=== PATIENT | male | born 1970 | race Caucasian/White ===

== ENCOUNTER 2017-11-08 20:33 | Emergency (ER) | payer SELFPAY ==
--- NOTE | 2017-11-08 22:07 | RADIOLOGY REPORT (SQ) ---
EXAM DESCRIPTION: T SPINE AP/LAT COMPLETED DATE/TIME: 11/08/2017 9:53 pm REASON FOR STUDY: BACK PAIN, LIFTING 400 POUNDS COMPARISON: None. NUMBER OF VIEWS: Two views. TECHNIQUE: AP and lateral radiographic images acquired of the thoracic spine. LIMITATIONS: None. FINDINGS: MINERALIZATION: Normal. ALIGNMENT: Normal. No scoliosis. VERTEBRAE: No fracture or bone lesion. Maintained height, normal segmentation. DISCS: No significant loss of height or significant narrowing. No large osteophytes. HARDWARE: None in the spine. MEDIASTINUM AND SOFT TISSUES: Normal heart size and aortic contour. No soft tissue abnormality. VISUALIZED LUNG [place]: Clear. OTHER: No other significant finding. IMPRESSION: NO SIGNIFICANT RADIOGRAPHIC FINDING IN THE THORACIC SPINE. TECHNICAL DOCUMENTATION: JOB ID: [id number] [employer]- All Rights Reserved Reading location - IP/workstation name: [email or web address]
--- NOTE | 2017-11-08 22:08 | RADIOLOGY REPORT (SQ) ---
EXAM DESCRIPTION: L SPINE WHOLE COMPLETED DATE/TIME: 11/08/2017 9:53 pm REASON FOR STUDY: BACK PAIN, LIFTING 400 POUNDS COMPARISON: None. NUMBER OF VIEWS: Five views including obliques. TECHNIQUE: AP, lateral, oblique, and sacral radiographic images acquired of the lumbar spine. LIMITATIONS: None. FINDINGS: MINERALIZATION: Normal. SEGMENTATION: Normal. No transitional anatomy. ALIGNMENT: Normal. VERTEBRAE: Maintained height. No fracture or worrisome bone lesion. DISCS: 5 degenerative disc disease with disc space narrowing L4-5 and L5-S1. POSTERIOR ELEMENTS: Pedicles and facets are intact. No pars defect or posterior arch defects. HARDWARE: None in the spine. PARASPINAL SOFT TISSUES: Normal. PELVIS: Intact as visualized. No fractures or worrisome bone lesions. SI joints intact. OTHER: No other significant finding. IMPRESSION: Lower lumbar degenerative disc disease. No acute fracture. TECHNICAL DOCUMENTATION: JOB ID: [id number] [employer]- All Rights Reserved Reading location - IP/workstation name: [email or web address]
[2017-11-08] MEDS ORDERED: DIAZEPAM 5 MG TABLET PO ONE (23:22)
[2017-11-08] MEDS ORDERED: IBUPROFEN 600 MG TABLET PO ONE (23:22)
--- NOTE | 2017-11-08 23:28 | ER Document Report ---
ED Neck/Back Problem - General Chief Complaint: Back Pain Stated Complaint: BACK PAIN Time Seen by Provider: 11/08/17 21:13 Mode of Arrival: Ambulatory Information source: Patient TRAVEL OUTSIDE OF THE [place] IN LAST 30 DAYS: No - HPI Patient complains to provider of: Pain, Upper back Onset: Other - 3 DAYS AGO Where: Work Notes: Patient is here with complaints of upper and lower back pain. States that a few days ago he was lifting a 400 pound box while at work and felt a sudden pain in his back. Since that time he has had increasing pain. There is no traumatic injury or fall. He is on no blood thinners. He denies any abdominal pain. He denies any chest pain or shortness of breath. No nausea, vomiting, diarrhea. No dysuria hematuria. He denies any numbness, tingling, weakness to the legs or arms. No bowel or bladder dysfunction. No rash. Pain is worse with movement, coughing, deep breath, nothing seems to make it better. No other injuries or complaints at this time. - Related Data Allergies/Adverse Reactions: Penicillins Allergy (Verified 11/08/17 20:36) Past Medical History - Social History Smoking Status: Current Every Day Smoker Chew tobacco use (# tins/day): No Frequency of alcohol use: Occasional Drug Abuse: None Family History: Reviewed & Not Pertinent Patient has suicidal ideation: No Patient has homicidal ideation: No Renal/ Medical History: Denies: Hx Peritoneal Dialysis Musculoskeltal Medical History: Reports Hx Arthritis Review of Systems - Review of Systems -: Yes All other systems reviewed and negative Physical Exam - Vital signs Vitals: Temp Pulse Resp BP Pulse Ox 98.9 F 109 H 28 H 135/83 H 96 11/08/17 20:51 11/08/17 20:51 11/08/17 20:51 11/08/17 20:51 11/08/17 20:51 - Notes Notes: GENERAL: alert, cooperative, nontoxic, no distress. HEAD: normocephalic, atraumatic EYES: conjunctiva pink without discharge, no external redness or swelling. EARS: no external swelling, no external redness NOSE: atraumatic, no external swelling MOUTH/THROAT: mucous membranes moist and pink, posterior pharynx without erythema, swelling, exudate. No trismus or drooling. NECK: soft, supple, full range of motion, no meningismus. CHEST: no distress, lungs clear and equal throughout. No wheezing, rales, rhonchi. CARDIAC: regular rate and rhythm, no murmur, normal capillary refill, normal pulses. No peripheral edema noted. ABDOMEN: soft, nontender, no pusatile mass. BACK: No CVA tenderness. Tenderness to the thoracic paraspinal muscles with muscle spasm to the right thoracic paraspinal muscle. No significant midline tenderness step-offs or crepitus. EXTREMITIES: full range of motion of all extremities. No redness, no swelling. NEURO: alert and oriented A&O x 3, no focal deficits, full range of motion of all extremities. 5 out of 5 flexion and extension of the lower extremities bilaterally. Patellar and Achilles deep tendon reflexes are +2 bilaterally. Normal sensation with no saddle anesthesia. Patient can dorsiflex the great toes bilaterally. PYSCH: appropriate mood, affect. Patient is cooperative. SKIN: pink, warm, dry, no rash. Course - Re-evaluation Re-evalutation: 11/08/17 23:24 Patient is nontoxic appearing with stable vitals. Is here with complaints of upper and lower back pain after lifting a 400 pound box at work. No direct trauma. He is on no blood thinners. No sign or risk of cauda equina, epidural abscess/bleed, discitis, osteomyelitis, AAA, pyelonephritis. Exam shows tenderness along the thoracic paraspinal muscles with muscle spasm on the right. No significant midline tenderness on exam. X-rays of the thoracic and lumbar spine show no acute abnormality with degenerative disc disease in the lumbar spine. The patient will be given a dose of ibuprofen and Valium here in the emergency department will be discharged home with Naprosyn and Valium. He is instructed to apply heat to the sore area. Massage the area. Follow-up if not better in 1 week, sooner for worsening pain, fever, numbness, tingling, weakness, bowel or bladder dysfunction, or for any further concerns. The patient is noted to have elevated blood pressure during today's emergency department visit. The patient was informed of this finding. The patient was instructed that this may be related to pre-hypertension and requires further evaluation with a primary care provider. The patient has no hypertensive symptoms at this time. The patient's emergency department workup and current diagnosis were explained to the patient and or family. Follow-up instructions were provided. Medications if prescribed were discussed. Instructions for when to return to the emergency department including specific worrisome symptoms were discussed with the patient and/or family. - Vital Signs Vital signs: Temp Pulse Resp BP Pulse Ox 98.9 F 109 H 28 H 135/83 H 96 11/08/17 20:51 11/08/17 20:51 11/08/17 20:51 11/08/17 20:51 11/08/17 20:51 - Diagnostic Test Radiology reviewed: Image reviewed, Reports reviewed - Thoracic and lumbar spine x-rays without acute findings. Degenerative disc disease in the lumbar spine. Discharge - Discharge Clinical Impression: Spasm of thoracic back muscle Back strain Qualifiers: Encounter type: initial encounter Qualified Code(s): S39.012A - Strain of muscle, fascia and tendon of lower back, initial encounter Condition: Stable Disposition: HOME, SELF-CARE Instructions: Low Back Pain ([facility]), Muscle Strain ([facility]), Warm Packs ([facility]), Muscle Relaxers ([facility]) Additional Instructions: Take medications as prescribed. You may also take Tylenol as needed for pain. Apply heat to sore area. Massage the area. Follow-up if not better in 1 week, sooner for worsening pain, fever, numbness, tingling, weakness, bowel or bladder dysfunction, or for any further concerns. Your blood pressure was elevated during today's visit. Have this rechecked with your doctor. Prescriptions: Diazepam [Valium 5 mg Tablet] 5 mg PO QIDP PRN #15 tablet PRN Reason: Naproxen [Naprosyn] 500 mg PO BID #20 tablet Forms: Elevated Blood Pressure, Smoking Cessation Education Referrals: [facility] [Provider Group] - Follow up as needed
[2017-11-08 23:48] VITALS: BP 121/85
== END 2017-11-08 23:48 | disposition home or self-care (01) ==
LOC: ER 20:33
DX: S39.012A Strain of muscle, fascia and tendon of lower back, initial encounter (principal); M62.830 Muscle spasm of back; F17.200 Nicotine dependence, unspecified, uncomplicated; Z88.0 Allergy status to penicillin; X50.0XXA Overexertion from strenuous movement or load, initial encounter; Y99.0 Civilian activity done for income or pay
CPT/HCPCS: 72070; 72110; 99283

== ENCOUNTER 2018-07-26 15:08 | Emergency (ER) | payer SELFPAY ==
[2018-07-26] MEDS ORDERED: CLINDAMYCIN 900 MG/D5W RTU 900 MG/50 ML RTUPB IV ONE (15:40)
[2018-07-26] MEDS ORDERED: KETOROLAC TROMETHAMINE INJ/PF 30 MG/1 ML SDV IV ONE (15:40)
--- NOTE | 2018-07-26 15:41 | ER Document Report ---
ED Medical Screen (RME) - General Chief Complaint: Hand Injury Stated Complaint: RIGHT HAND INJURY Time Seen by Provider: 07/26/18 15:18 Notes: 48-year-old male to the emergency department chief complaint of right hand pain, swelling, redness and drainage from the hand. Patient states that he got his hands slammed in a tailgate of a dump truck 4 days ago. Has continued to swell. There was somewhat swelling that his friend decided to cut it open. Reportedly large amount of pus came out. Redness is not extending up the wrist and forearm. States that his last tetanus was 3 years ago. No fever. Pain is rated as a 5/5 on a numeric pain scale. I have greeted and performed a rapid initial assessment of this patient. A comprehensive ED assessment and evaluation of the patient, analysis of test results and completion of the medical decision making process will be conducted by additional ED providers. TRAVEL OUTSIDE OF THE [place] IN LAST 30 DAYS: No - Related Data Allergies/Adverse Reactions: Penicillins Allergy (Verified 11/08/17 20:36) Past Medical History - Social History Chew tobacco use (# tins/day): No Frequency of alcohol use: Social Drug Abuse: None Renal/ Medical History: Denies: Hx Peritoneal Dialysis Musculoskeltal Medical History: Reports Hx Arthritis Physical Exam - Vital signs Vitals: Temp Pulse Resp BP Pulse Ox 99.1 F 109 H 24 H 132/83 H 97 07/26/18 15:14 07/26/18 15:14 07/26/18 15:14 07/26/18 15:14 07/26/18 15:14 - Extremities General upper extremity: Other - Swelling and edema noted to the right dorsum of the hand. Abrasions noted to the dorsum of the right hand. Lymphangitic streaking going up the wrist and arm. Course - Vital Signs Vital signs: Temp Pulse Resp BP Pulse Ox 99.1 F 109 H 24 H 132/83 H 97 07/26/18 15:14 07/26/18 15:14 07/26/18 15:14 07/26/18 15:14 07/26/18 15:14
--- NOTE | 2018-07-26 15:49 | RADIOLOGY REPORT (SQ) ---
EXAM DESCRIPTION: HAND RIGHT 3 VIEWS COMPLETED DATE/TIME: 07/26/2018 3:39 pm REASON FOR STUDY: Smashed hand in tailgate of [facility] 2 days ago COMPARISON: None. EXAM PARAMETERS: NUMBER OF VIEWS: Three views. TECHNIQUE: AP, lateral and oblique radiographic images acquired of the right hand. LIMITATIONS: None. FINDINGS: MINERALIZATION: Normal. BONES: No acute fracture or dislocation. No worrisome bone lesions. JOINTS: No effusions. SOFT TISSUES: Dorsal soft tissue swelling. No foreign body. OTHER: No other significant finding. IMPRESSION: Soft tissue injury. TECHNICAL DOCUMENTATION: JOB ID: [id number] [employer]- All Rights Reserved Reading location - IP/workstation name: [email or web address]
[2018-07-26 15:59] LABS: ABSOLUTE BASOPHILS # (AUTO) 0.1 10^3/uL (0.0-0.2); ABSOLUTE LYMPHOCYTES (AUTO) 1.1 10^3/uL (0.5-4.7); ABSOLUTE MONOCYTES (AUTO) 1.1 10^3/uL (0.1-1.4); ABSOLUTE NEUT (AUTO) 8.9 10^3/uL (1.7-8.2); BASOPHILS % (AUTO) 0.5 % (0-2); EOSINOPHILS % (AUTO) 0.2 % (0-6); HEMATOCRIT 45.5 % (37.9-51.0); HEMOGLOBIN 15.5 g/dL (13.5-17.0); LYMPHOCYTES % (AUTO) 9.5 % (13-45); MEAN CORPUSCULAR HEMOGLOBIN 35.7 pg (27.0-33.4); MEAN CORPUSCULAR HGB CONC 34.1 g/dL (32.0-36.0); MEAN CORPUSCULAR VOLUME 105 fl (80-97); MONOCYTES % (AUTO) 9.7 % (3-13); PLATELET COUNT 214 10^3/uL (150-450); RED BLOOD COUNT 4.35 10^6/uL (4.35-5.55); RED CELL DISTRIBUTION WIDTH 13.6 % (11.5-14.0); SEGMENTED NEUTROPHILS % (AUTO) 80.1 % (42-78); TOTAL CELLS COUNTED % (AUTO) 100 %; WHITE BLOOD COUNT 11.1 10^3/uL (4.0-10.5)
[2018-07-26 16:27] LABS: ALANINE AMINOTRANSFERASE 96 U/L (21-72); ALBUMIN 4.6 g/dL (3.5-5.0); ALKALINE PHOSPHATASE 151 U/L (38-126); ANION GAP 13 (5-19); ASPARTATE AMINO TRANSFERASE 61 U/L (17-59); BILIRUBIN,DIRECT 0.4 mg/dL (0.0-0.4); BILIRUBIN,TOTAL 0.7 mg/dL (0.2-1.3); C-REACTIVE PROTEIN 17.8 mg/L (<10.0); CALCIUM 9.2 mg/dL (8.4-10.2); CARBON DIOXIDE 24 mmol/L (22-30); CHLORIDE 102 mmol/L (98-107); GLUCOSE 163 mg/dL (75-110); POTASSIUM 3.9 mmol/L (3.6-5.0); SODIUM 139.4 mmol/L (137-145); TOTAL PROTEIN 7.7 g/dL (6.3-8.2)
[2018-07-26 16:28] LABS: BLOOD UREA NITROGEN < 2 mg/dL (7-20)
--- NOTE | 2018-07-26 17:29 | ER Document Report ---
ED General - General Chief Complaint: Hand Injury Stated Complaint: RIGHT HAND INJURY Time Seen by Provider: 07/26/18 15:18 Notes: 48-year-old [id number] male to the emergency department with chief complaint of right hand pain, swelling, redness and drainage from his right hand. Patient states that he got his hands slammed in a tailgate of a dump truck 4 days ago. Has continued to swell. There was an area of swelling on the dorsal aspect of his right hand that he thought was infected so his friend decided to slice it open with a "clean "razor blade. Reportedly a large amount of pus came out. States that his last tetanus was 3 years ago. No fever. Pain is rated as a 5/5 on a numeric pain scale. Patient denies any other symptoms TRAVEL OUTSIDE OF THE [place] IN LAST 30 DAYS: No - Related Data Allergies/Adverse Reactions: Penicillins Allergy (Verified 11/08/17 20:36) Past Medical History - General Information source: Patient - Social History Smoking Status: Current Every Day Smoker Chew tobacco use (# tins/day): No Frequency of alcohol use: Social Drug Abuse: None Family History: Reviewed & Not Pertinent Patient has suicidal ideation: No Patient has homicidal ideation: No Renal/ Medical History: Denies: Hx Peritoneal Dialysis Musculoskeletal Medical History: Reports Hx Arthritis Review of Systems - Review of Systems Constitutional: See HPI EENT: No symptoms reported Cardiovascular: No symptoms reported Respiratory: No symptoms reported Gastrointestinal: No symptoms reported Genitourinary: No symptoms reported Male Genitourinary: No symptoms reported Musculoskeletal: See HPI Skin: See HPI Hematologic/Lymphatic: No symptoms reported Neurological/Psychological: No symptoms reported Physical Exam - Vital signs Vitals: Temp Pulse Resp BP Pulse Ox 99.1 F 109 H 24 H 132/83 H 97 07/26/18 15:14 07/26/18 15:14 07/26/18 15:14 07/26/18 15:14 07/26/18 15:14 - Notes Notes: Reviewed vital signs and nursing note as charted by RN. CONSTITUTIONAL: Well-appearing, well-nourished, acting appropriately for age HEAD: Normocephalic, atraumatic, no swelling EYES: PERRL, Conjunctivae clear, no drainage, EOMI, no scleral icterus ENT: External ears without lesions, External auditory canal is patent, airway patent, mucous membranes pink and moist CARD: Regular rate and rhythm, no murmurs, no rubs, no gallops, capillary refill < 2 seconds, symmetric pulses RESP: The lungs are clear to auscultation bilaterally, no wheezing, no rales, no rhonchi. Respiratory rate and effort are normal, normal chest excursion. No respiratory distress, no retractions, no stridor, no nasal flaring, no accessory muscle use. ABD/GI: Normal bowel sounds, non-distended, soft, non-tender, no rebound, no guarding, no palpable organomegaly EXT: Limited range of motion right wrist in flexion and extension, limited range of motion in all of his digits right hand. 2+ edema right hand with 1+ edema extending proximally to the level of mid forearm on the dorsal aspect. Area of redness over dorsal thenar area between the thumb and ring finger with 3 linear healed laceration secondary to razor blade. SKIN: Normal color for age and race, warm, dry, good turgor, no acute lesions noted NEURO: No facial asymmetry, moves all extremities equally, motor and sensory function intact Course - Re-evaluation Re-evalutation: 07/26/18 18:21 Pleasant 48-year-old male in no acute distress presents to the emergency department for subacute right hand and wrist injury. He states his hand got caught in a dump truck, was caught there for a few seconds, before he was able to extract it. He then noticed today that there is some redness and swelling on the dorsal aspect of his right hand and his cousin attempted to ebonie the area with a clean razor blade. He does state that there is purulent material that was evacuated from it. Patient presented to the emergency department and x-rays were taken which were negative for fracture or any concerning lesions. I performed ultrasound at the bedside to assess for any fluid pockets areas of flu ctuance. There were no evidence of any fluid pockets only the presence of soft tissue swelling. Because of this there was no clear area that could be incised and drained. He does have some edema and erythema that is extending proximally about one third of the way proximal mainly on the dorsal side. Normal distal neurovascular exam, brisk cap refill less than 2 seconds. Skin was warm to touch compared to left side. That area was marked with a skin marker. Patient received 1 dose of clindamycin IV antibiotics in the emergency department. I discussed the patient with Dr. Contreras. Patient does not have insurance so I am going to send him home with a prescription for Keflex and Bactrim for 7 days. I instructed the patient and clarified the importance that he needed to follow- up here in 24 hours for a wound check to ensure that the infection was not spreading. 07/26/18 18:24 - Vital Signs Vital signs: Temp Pulse Resp BP Pulse Ox 99.1 F 109 H 24 H 132/83 H 97 07/26/18 15:14 07/26/18 15:14 07/26/18 15:14 07/26/18 15:14 07/26/18 15:14 - Laboratory Result Diagrams: 07/26/18 15:47 07/26/18 15:47 Laboratory results interpreted by me: 07/26/18 07/26/18 15:47 15:47 WBC 11.1 H MCV 105 H MCH 35.7 H Seg Neutrophils % 80.1 H Lymphocytes % 9.5 L Absolute Neutrophils 8.9 H BUN < 2 L Glucose 163 H AST 61 H ALT 96 H Alkaline Phosphatase 151 H C-Reactive Protein 17.8 H Discharge - Discharge Clinical Impression: Injury of right hand Qualifiers: Encounter type: initial encounter Qualified Code(s): S69.91XA - Unspecified injury of right wrist, hand and finger(s), initial encounter Condition: Good Disposition: HOME, SELF-CARE Additional Instructions: You are seen in the emergency department this evening for a right hand injury. X-ray showed no evidence of any fracture or any concerning lesions on your bones. It did just show soft tissue swelling. We performed the ultrasound which did not reveal any fluid pocket concerning for an obvious abscess. We marked her skin with a skin marker. If the swelling and the redness extends beyond the skin marker to the level of the elbow before recheck tomorrow please return to the emergency department. We asked that you return to the emergency department tomorrow for a recheck to make sure that the infection is starting to heal. It is critically important that you do this as we are concerned that the infection could spread. He did receive 1 dose of IV antibiotics while here in the emergency department. I have prescribed you with to oral antibiotics that you need to take at home. You can take your first dose tonight before you go to bed around 10 or 11:00. You have been prescribed Keflex 500 mg tablets that you need to take every 6 hours. You have also been prescribed medication called Bactrim and you need to take 1 tablet 2 times per day. Please immediately return to the emergency department if as stated the swelling rapidly expands or the redness rapidly spreads, you start noticing red streaks going up your arm, you develop high fever or become acutely ill. You can also take Motrin 600 mg every 6 hours and Tylenol 1000 mg every 6 hours for pain and discomfort. I have given you a very short course of oral narcotics that you can take for the pain. Please do not drive or operate machinery with this and try to use it just to help you sleep at night.
[2018-07-26] MEDS ORDERED: HYDROCODONE/ACETAMINOPHEN 5-325 MG (6 TAB/ER DISP) PO PRN (18:27)
[2018-07-26 18:47] VITALS: BP 131/83
[2018-07-26] MEDS ORDERED: ACETAMINOPHEN 325 MG TABLET PO ONE (19:21)
== END 2018-07-26 19:33 | disposition home or self-care (01) ==
LOC: ER 15:08
DX: S69.91XA Unspecified injury of right wrist, hand and finger(s), initial encounter (principal); S61.411A Laceration without foreign body of right hand, initial encounter; L08.89 Other specified local infections of the skin and subcutaneous tissue; M79.641 Pain in right hand; M79.89 Other specified soft tissue disorders; V98.8XXA Other specified transport accidents, initial encounter; F17.200 Nicotine dependence, unspecified, uncomplicated
CPT/HCPCS: 99283; 96375; 96365; 36415; 87040; 85025; 86140; 80053; 73130; J1885